=== PATIENT | male | born 1980 ===

== ENCOUNTER 2017-11-30 10:13 | Emergency (ER) | payer OTHER ==
[2017-11-30 10:18] VITALS: BMI 21.7
[2017-11-30 10:20] VITALS: BP 124/82; PULSE 74; RESP 16; TEMP 98.2
[2017-11-30 10:31] VITALS: O2SAT 98
--- NOTE | 2017-11-30 11:27 | ED PDOC ---
HPI: CCC, URI, Sore Throat Time Seen by Provider: 11/30/17 10:31 Chief Complaint (Nursing): Flu-like Symptoms Chief Complaint (Provider): [place] x 1 week History Per: Patient History/Exam Limitations: no limitations Have you had recent travel within the past 21 days to any of the following countries: [place], [place], [place] or [place]?: No Onset/Duration Of Symptoms: Days Current Symptoms Are (Timing): Still Present Location Of Pain: Diffuse Myalgias, Headache Sick Contacts (Context): None Associated Symptoms: Fever, Chills, Cough, Myalgias, Nasal Congestion. denies: Sore Throat, Sputum, Vomiting, Diarrhea Additional Complaint(s): 37 yo male with no medical problems presents with 1 week of cough. PT states earlier in the week he had fever (no temp taken at home), cough, body aches and headache. PT was taking tylenol, motrin and theraflu (not tamilfu, correction to triage). Pt did not take anything at home today for symptoms and is afebrile. Pt states today he is only having cough. Past Medical History Reviewed: Historical Data, Nursing Documentation, Vital Signs Vital Signs: Last Vital Signs Temp 98.2 F 11/30/17 10:18 Pulse 74 11/30/17 10:18 Resp 16 11/30/17 10:18 BP 124/82 11/30/17 10:18 Pulse Ox 98 11/30/17 11:27 - Medical History PMH: No Chronic Diseases - Surgical History Surgical History: No Surg Hx - Family History Family History: States: No Known Family Hx - Home Medications Home Medications: Ambulatory Orders Medication Instructions Recorded Guaifen/Phenyleph/Acetaminophn 1 tab PO BID #14 tab 11/30/17 [Mucinex Fast-Max Cold & Sinus 325 mg-200 mg-5] - Allergies Allergies/Adverse Reactions: Allergies Allergy/AdvReac Type Severity Reaction Status Date / Time No Known Allergies Allergy Verified 11/30/17 10:28 Review of Systems ROS Statement: Except As Marked, All Systems Reviewed And Found Negative Constitutional: Positive for: Fever, Chills, Sweats Cardiovascular: Negative for: Chest Pain Respiratory: Positive for: Cough Physical Exam - Reviewed Nursing Documentation Reviewed: Yes Vital Signs Reviewed: Yes - Physical Exam Appears: Positive for: Well, Non-toxic, No Acute Distress Head Exam: Positive for: ATRAUMATIC, NORMAL INSPECTION, NORMOCEPHALIC Skin: Positive for: Normal Color, Warm, DRY Eye Exam: Positive for: Normal appearance ENT: Positive for: Normal ENT Inspection Neck: Positive for: Normal, Painless ROM Cardiovascular/Chest: Positive for: Regular Rate, Rhythm Respiratory: Positive for: CNT, Normal Breath Sounds Gastrointestinal/Abdominal: Positive for: Normal Exam, Bowel Sounds, Soft Back: Positive for: Normal Inspection Extremity: Positive for: Normal ROM Neurologic/Psych: Positive for: Alert, Oriented - ECG O2 Sat by Pulse Oximetry: 98 Medical Decision Making Medical Decision Making: CXr - Normal . No fever in eR. Disposition - Clinical Impression Clinical Impression: Viral URI with cough - Patient ED Disposition Is Patient to be Admitted: No Counseled Patient/Family Regarding: Diagnosis, Need For Followup, Rx Given - Disposition Referrals: [facility] [Outside] Disposition: Routine/Home Disposition Time: 11:59 Condition: GOOD Prescriptions: Guaifen/Phenyleph/Acetaminophn [Mucinex Fast-Max Cold & Sinus 325 mg-200 mg-5] 1 tab PO BID #14 tab Instructions: Viral Upper Respiratory Infection, Adult (DC) Forms: [employer] (Romanian)
--- NOTE | 2017-11-30 11:47 | RAD ---
HISTORY: cough x 1 week COMPARISON: Chest radiograph dated 03/22/2010. TECHNIQUE: Chest PA and lateral FINDINGS: LUNGS: No active pulmonary disease. PLEURA: No significant pleural effusion identified. No pneumothorax apparent. CARDIOVASCULAR: Normal. OSSEOUS STRUCTURES: No significant abnormalities. VISUALIZED UPPER ABDOMEN: Normal. OTHER FINDINGS: None. IMPRESSION: No active disease.
== END 2017-11-30 13:07 | disposition home or self-care (01) ==
LOC: H.ER 10:13
DX: J06.9 Acute upper respiratory infection, unspecified (principal); R05 Cough